=== PATIENT | female | born 1945 | race Caucasian/White ===

== ENCOUNTER 2021-03-29 17:42 | Emergency (ER) | payer MEDICARE, OTHER, SELFPAY ==
[2021-03-29 17:50] VITALS: BP 126/80; PULSE 101; RESP 20; TEMP 37; O2SAT 97
--- NOTE | 2021-03-29 18:18 | ED.URI ---
HPI - URI/Sore Throat General Chief Complaint: Upper Respiratory Infection Stated Complaint: sore throat Source: patient and RN notes reviewed Mode of arrival: ambulatory History of Present Illness HPI Narrative: This is a 75-year-old female that presented to urgent care today with complaints of throat pain and left ear pain that occurred today. She did not do anything at home to relieve her cyst symptoms .she notes she called her primary care physician and her primary care physician told her if the situation get worse then to call her back. The patient denies SOB, CP, palpitation, extremity numbness, lightheadedness, ear discharge , decrease in hearing ,dizziness, constipation, diarrhea, chills, or fever. Related Data Home Medications Medication Instructions Recorded Confirmed amlodipine 03/29/21 citalopram mg 03/29/21 ferrous sulfate [FeroSul] mg 03/29/21 loperamide 03/29/21 losartan 03/29/21 pantoprazole PO 03/29/21 pravastatin 03/29/21 prednisone 03/29/21 Allergies Allergy/AdvReac Type Severity Reaction Status Date / Time No Known Allergies Allergy Unverified 04/13/13 10:59 Review of Systems Review of Systems: A 14 organ system Review of Systems was performed and pertinent positives included in the HPI, otherwise remaining ROS is negative. Exam Narrative: GENERAL: This is a well-nourished, well-developed patient, in no apparent distress. HEAD: normocephalic, atraumatic. EYES: PERRL. Sclera clear/white. Vision is grossly intact. EARS: External ears normal, auditory canals clear and without drainage, TMs normal without perforation. Hearing grossly intact. Left ear wax buildup NOSE: External nose normal with no obvious nasal discharge, nares without redness, no rhinorrhea. THROAT: Mucous membranes moist, posterior pharynx clear. NECK: Neck supple, non-tender without lymphadenopathy, masses or thyromegaly. CARDIOVASCULAR: Regular rate and rhythm without murmurs, gallops, or rubs. RESPIRATORY: Clear to auscultation. Breath sounds equal bilaterally. No wheezes, rales, or rhonchi. GASTROINTESTINAL: Abdomen soft, non-tender, nondistended. Bowel sounds are active. No hepato-splenomegaly, or palpable masses. No guarding. SKIN: warm, intact with no suspicious lesions or rash, good texture and turgor. NEURO: awake, alert, and oriented to person, place and time. There were no obvious focal neurologic abnormalities. Steady gait EXTREMITIES: Normal range of motion. No edema. No calf tenderness. Negative Homans sign bilaterally. BACK: Nontender without deformity or crepitance. No flank tenderness. Course Course Emergency Course: Patient instructed to take rbtb-occ-spczurc medication for symptoms plus left ear out Vital Signs Vital signs: Vital Signs Temperature 98.6 F 03/29/21 17:50 Pulse Rate 101 H 03/29/21 17:50 Respiratory Rate 20 03/29/21 17:50 Blood Pressure 126/80 03/29/21 17:50 Pulse Oximetry 97 03/29/21 17:50 Temperature 98.6 F 03/29/21 17:50 Pulse Rate 101 H 03/29/21 17:50 Respiratory Rate 20 03/29/21 17:50 Blood Pressure 126/80 03/29/21 17:50 Pulse Oximetry 97 03/29/21 17:50 Procedures Ear Wax Removal Left Ear: Ear Wax Removal Date: 03/29/21 Cerumenolytic Used: 5-10% Sodium Bicarb solution Results: Re-examined: cerumen removed completely TM Examination: TM(s) intact, normal appearance Patient Tolerated Procedure: well Complications: no problems MDM - URI/Sore Throat Differential Diagnosis Differential diagnosis: Likely upper respiratory infection, pharyngitis and other (Otitis media) Lab Data Labs: Strep Screen Presumptive Negative *(Reference Range: Negative)* Discharge Plan Discharge Clinical Impression: Acute sore throat Cerumen impaction Qualifiers: Laterality: left Qualified Code(s): H61.22 - Impacted cerumen, left ear Patient Disposition: H
== END 2021-03-29 18:33 | disposition home or self-care (01) ==
PROVIDERS: Emergency Provider Nurse Practitioner
DX: H61.22 Impacted cerumen, left ear (principal); J02.9 Acute pharyngitis, unspecified
CPT/HCPCS: 69209; 87081; 87880; 99213; A9270; G0463

== ENCOUNTER 2023-06-17 09:14 | Outpatient (CLI) | payer MEDICARE, OTHER, SELFPAY ==
--- NOTE | ~2023-06-17 | XR_ITS ---
EXAMINATION: XR hip LT min 2V, XR lumbar spine 2-3V DATE: 06/17/2023 09:40 INDICATION: Low back and left hip pain post fall 2 months prior TECHNIQUE: 1. Anteroposterior, lateral and coned-down lateral lumbosacral views of the lumbar spine were obtaine d. 2. Anteroposterior and frog-leg lateral views of the left hip were obtained. COMPARISON: None. FINDINGS: Lumbar spine: 14 degrees lumbar dextroscoliosis. 2 mm anterolisthesis L4 on L5. There is an age-indeterminate L3 co mpression fracture with 50% left anterior predominant vertebral body height loss. Remaining lumbar ve rtebral body heights are normal. Moderate disc height loss at T12-L1, L1-L2 and L5-S1. Mild disc heig ht loss at L2-L3 and L4-L5. Moderate to severe lower lumbar predominant facet osteoarthritis. Moderat e bilateral sacroiliac osteoarthritis. There is asymmetric sclerosis at the left sacral ala suggestin g possibility of a subacute or chronic insufficiency fracture. Left hip: Normal alignment left hip. No fracture at the left hip are visualized proximal femur. No avascular ne crosis. Left hip joint space is normal. IMPRESSION: 1. Age-indeterminate L3 compression fracture with up to 50% left anterior vertebral body height loss. 2. 14 degrees lumbar dextro scoliosis with severe spondylosis. 3. Asymmetric increased sclerosis at the left sacral ala suggesting possibility of subacute to chroni c insufficiency fracture. 4. Normal left hip. Reviewed, dictated and finalized at location L. IMPRESSION: 1. Age-indeterminate L3 compression fracture with up to 50% left anterior verte bral body height loss. 2. 14 degrees lumbar dextro scoliosis with severe spondylosis. 3. Asymmetric increased sclerosis at the left sacral ala suggesting possibility of subacute to chronic insufficiency fracture. 4. Normal left hip.
--- NOTE | ~2023-06-17 | XR_ITS ---
Clinical Indication: Anemia PA and lateral views of the chest: Comparison: 09/10/2016 Findings: There is minimal haziness right lung base.. Cardiomediastinal silhouette is within normal limits. Moderate to large hiatal hernia present. Osseous structures intact. Impression: Mild haziness right lung base. Correlate for atelectasis or pneumonia. Moderate to large hiatal hernia. Reviewed, dictated and finalized at location . Impression: Mild haziness right lung base. Correlate for atelectasis or pneumonia. Moderate to large hiatal hernia.
== END 2023-06-17 09:15 ==
DX: D64.9 Anemia, unspecified (principal); M25.552 Pain in left hip; S32.038A Other fracture of third lumbar vertebra, initial encounter for closed fracture; M41.86 Other forms of scoliosis, lumbar region; R91.8 Other nonspecific abnormal finding of lung field; K44.9 Diaphragmatic hernia without obstruction or gangrene
CPT/HCPCS: 71046; 72100; 73502